=== PATIENT | female | born 1970 | race Two or more races ===

== ENCOUNTER 2018-07-09 01:34 | Emergency (ER) | payer SELFPAY ==
[~2018-07-09] VITALS: Ht 167.6 cm; Wt 77.1 kg
[2018-07-09 01:48] VITALS: BP 106/91
== END 2018-07-09 05:44 | disposition left against medical advice (07) ==
LOC: ER 01:34 → EDBD 01:34 → ER 05:44
DX: F41.9 Anxiety disorder, unspecified (principal); R32 Unspecified urinary incontinence; Z53.21 Procedure and treatment not carried out due to patient leaving prior to being seen by health care provider